=== PATIENT | female | born 1985 | race Caucasian/White ===

== ENCOUNTER 2025-06-12 09:56 | Outpatient (CLI) | payer BC, SELFPAY ==
[2025-06-14 11:36] LABS: Iron* 68 ug/dL (37-170)
[2025-06-14 11:45] LABS: Percent Iron Saturation 21 % (20-50); Total Iron Binding Capacity 324 ug/dL (265-497)
== END 2025-06-12 23:59 | disposition home or self-care (01) ==
LOC: NPINS 06-14 09:57
PROVIDERS: PCP Student in an Organized Health Care Education/Training Program; Visit Provider Student in an Organized Health Care Education/Training Program
DX: Z11.1 Encounter for screening for respiratory tuberculosis (principal)
CPT/HCPCS: 82728; 83540; 83550